=== PATIENT | male | born 1980 | race Two or more races ===

== ENCOUNTER 2016-11-20 20:35 | Emergency (ER) | payer SELFPAY ==
[~2016-11-20] VITALS: Ht 165.1 cm; Wt 95.2 kg
--- NOTE | ~2016-11-20 | CR111 ---
[facility] A Service of [facility] & [facility] RADIOLOGY TEXT RESULTS PATIENT: MAYITO GREGORY LOCATION: [place] : [birth year] UNIT #: [id number] AGE: [address]: Sera Harp APRN SEX: M ORDER DR: [id number] [facility] [address], [place] [address] [id number] MR#: [id number] Acc #: [id number] NAME: MAYITO GREGORY : 1980 SEX: M STUDY DATE/TIME: 11/20/2016 22:27 UNIT: [id number] ROOM: STUDY DESCRIPTION: CR Finger 2 View 3rd Rt Attending Physician: Sera Harp A.P.R.N. Ordering Physician: Sera Harp A.P.R.N. Primary Care Physician: No Primary Care Physician MEDICAL IMAGING REPORT This report is preliminary unless electronic signature is present EXAM Right third finger series, 11/20/2016. HISTORY 36-year-old male in the ED after crush injury to the third finger tip today. TECHNIQUE Three-view right third finger series. FINDINGS No fracture, dislocation or other acute osseous abnormality involving the third digit. Soft tissue swelling is noted. No visible radiopaque soft tissue foreign body. IMPRESSION 1. No acute osseous abnormality involving the third finger. Diffuse soft tissue swelling. 2. No visible radiopaque soft tissue foreign body. Dictated by... Vick Cano M.D. THIS IS AN ELECTRONICALLY VERIFIED REPORT Vick Cano M.D. at 11/21/2016 5:59 AM MAGALYS/yoandy TD: 11/21/2016 00:01 JOB #: [id number] MEDICAL IMAGING REPORT Page 1 of 1 COPY
== END 2016-11-20 23:25 | disposition home or self-care (01) ==
LOC: CED 20:35 → CFTX 20:35
DX: S61.212A Laceration without foreign body of right middle finger without damage to nail, initial encounter (principal); E78.5 Hyperlipidemia, unspecified; X58.XXXA Exposure to other specified factors, initial encounter; Z23 Encounter for immunization
CPT/HCPCS: 12001; 73140; 90471; 90715; 99283